=== PATIENT | female | born 1945 | race Two or more races ===

== ENCOUNTER 2022-12-22 10:17 | Inpatient (IN) | payer MEDICARE, MEDICAID ==
[~2022-12-22] VITALS: Ht 170.2 cm; Wt 91.8 kg
[~2022-12-22 10:17] MED LIST: AMLO-496 PO; ATO40T PO; HYDR-4296 PO; LISI20TA28 PO; METO-158 PO; NITR0.4S29 SL; OMEP20CA74 PO; RIVA20TA PO
[2022-12-22 11:18] LABS: White Blood Cell 7.1 10^3/uL (4.4-10.8)
[2022-12-22 11:20] LABS: Hematocrit 21.3 % (36.0-46.0); Mean Corpuscular Hemoglobin 22.3 pg (28.0-32.0); Mean Corpuscular Hgb Conc. 30.9 g/dL (32.0-36.0); Mean Corpuscular Volume 72.2 fL (80.0-100.0); Red Blood Cells 2.95 10^6/uL (4.0-5.20); Red Cell Distribution Width 18.5 % (11.8-14.3)
[2022-12-22 11:35] LABS: Hemoglobin 6.6 g/dL (12.2-16.2)
[2022-12-22 11:42] LABS: Band Neutrophils % (manual) 0; Basophils % (manual) 0 (0.0-2.0); Blast Cells 0; Eosinophils % (manual) 0 (0-7); Metamyelocytes % 0; Myelocytes % 0; Promyelocytes % 0; Reactive Lymphocytes 0
[2022-12-22 11:57] LABS: Anion Gap 10 (5-15); BUN/Creatinine Ratio 29.6; Blood Urea Nitrogen 56 mg/dL (7-18); Carbon Dioxide 22 mmol/L (21-32); Chloride 111 mmol/L (98-107); GFR African American 33 mL/min; GFR Non-African American 28 mL/min; Glucose 122 mg/dL (74-106); Sodium 143 mmol/L (136-145)
[2022-12-22 11:58] LABS: Alanine Aminotransferase 30 U/L (13-56); Albumin 3.5 g/dL (3.4-5.0); Alkaline Phosphatase 88 U/L (45-117); Aspartate Aminotransferase 17 U/L (15-37); Bilirubin, Total < 0.1 mg/dL (0.2-1.0); Calcium 8.6 mg/dL (8.5-10.1); Total Protein 6.7 g/dL (6.4-8.2)
[2022-12-22] MEDS ORDERED: cloNIDine HCL 0.1 MG TAB PO ONE (12:15)
[2022-12-22 15:44] LABS: Urine Bacteria NONE SEEN /hpf (None Seen); Urine Blood Negative /uL (Negative); Urine Specific Gravity 1.013 (1.001-1.035); Urine WBC 2 /hpf (0 - 5)
[2022-12-22] MEDS ORDERED: NITROGLYCERIN 0.4 MG SL TAB SL PRN (16:00)
[2022-12-22] MEDS ORDERED: PANTOPRAZOLE 40 MG/10 ML VIAL INJ IV ONE (16:00)
[2022-12-22] MEDS ORDERED: MORPHINE SULFATE INJ 2 MG/ml SYRG IV PRN (16:00)
[2022-12-22 16:03] LABS: Lymphocytes % (manual) 11 (10.0-50.0); Monocytes % (manual) 7 (0-12)
[2022-12-22] MEDS ORDERED: hydrALAZINE HCL 20 MG/ML VL IV PRN (16:15)
[2022-12-22] MEDS ORDERED: DEXTROSE (50%) 50ML SYRG IV PRN (16:15)
[2022-12-22 16:27] VITALS: BP 147/60
[2022-12-22 16:42] VITALS: BP 156/70
[2022-12-22 16:48] LABS: Hematocrit 22.3 % (36.0-46.0)
[2022-12-22 16:55] LABS: Hemoglobin 6.8 g/dL (12.2-16.2)
[2022-12-22 17:22] LABS: Ferritin 3.7 ng/mL (10-322)
[2022-12-22 17:40] LABS: % Iron Saturation 2.2 % (15-50)
[2022-12-22 17:48] LABS: Cholesterol 85 mg/dL (< 200); HDL Cholesterol 23 mg/dL (40-59); LDL Cholesterol 62 mg/dL (< 100); Triglycerides 116 mg/dL (< 150)
[2022-12-22] MEDS: InsuLIN REG 1unit/0.01ml Soln (100units/ml) SC SCH (18:00)
[2022-12-22] MEDS: LACTATED RINGER'S 1,000 ML IV SCH (18:23)
[2022-12-22] MEDS: ACCU-CHEK COMFORT CURVE STRIP VI SCH (18:24)
[2022-12-22 18:33] LABS: INR 1.32 (0.9-1.15)
[2022-12-22 18:35] VITALS: BP 151/74
[2022-12-22 22:01] LABS: Basophils # (auto) 0.1 10 ^3/uL (0-0.2); Eosinophils # (auto) 0.1 10 ^3/uL (0-0.8); Hemoglobin 7.2 g/dL (12.2-16.2); Lymphocytes # (auto) 0.8 10 ^3/uL (0.4-5.4); Mean Corpuscular Volume 73.8 fL (80.0-100.0); Monocytes # (auto) 0.7 10 ^3/uL (0-1.3); Nucleated Red Blood Cells % 0.7 %
[2022-12-22 22:02] LABS: Basophils % (auto) 1.2 % (0.0-2.0); Eosinophils % (auto) 0.9 % (0.0-7.0); Lymphocytes % (auto) 11.5 % (10.0-50.0); Mean Corpuscular Hemoglobin 23.1 pg (28.0-32.0); Mean Corpuscular Hgb Conc. 31.3 g/dL (32.0-36.0); Monocytes % (auto) 9.3 % (0.0-12.0); Neutrophils # (auto) 5.4 10 ^3/uL (1.6-8.6); Neutrophils % (auto) 77.1 % (37.0-80.0); Red Blood Cells 3.12 10^6/uL (4.0-5.20)
[2022-12-22] MEDS: ATORVASTATIN 20 MG TAB PO SCH (22:40)
[2022-12-22] MEDS: hydrALAZINE HCL 25 MG TAB PO SCH (22:40)
[2022-12-22] MEDS: METOPROLOL TARTRATE 50 MG TAB PO SCH (22:41)
[2022-12-23 00:56] LABS: Hematocrit 23.6 % (36.0-46.0); Hemoglobin 7.3 g/dL (12.2-16.2)
[2022-12-23] MEDS: LACTATED RINGER'S 1,000 ML IV SCH ×2 (04:29→12:40)
[2022-12-23] MEDS: PANTOPRAZOLE 40 MG/10 ML VIAL INJ IV SCH ×2 (04:29→20:09)
[2022-12-23] MEDS: ACCU-CHEK COMFORT CURVE STRIP VI SCH ×4 (05:34→20:10)
[2022-12-23] MEDS: InsuLIN REG 1unit/0.01ml Soln (100units/ml) SC SCH ×5 (05:34→22:59)
[2022-12-23 06:44] LABS: Albumin 3.1 g/dL (3.4-5.0); Calcium 8.9 mg/dL (8.5-10.1); Potassium 4.2 mmol/L (3.5-5.1)
[2022-12-23 06:50] LABS: BUN/Creatinine Ratio 25.6; Bilirubin, Total 0.8 mg/dL (0.2-1.0); Total Protein 6.5 g/dL (6.4-8.2)
[2022-12-23 06:53] LABS: Eosinophils # (auto) 0.1 10 ^3/uL (0-0.8); Lymphocytes # (auto) 0.8 10 ^3/uL (0.4-5.4); Monocytes # (auto) 0.7 10 ^3/uL (0-1.3); White Blood Cell 6.7 10^3/uL (4.4-10.8)
[2022-12-23 06:55] LABS: Basophils # (auto) 0.1 10 ^3/uL (0-0.2); Basophils % (auto) 0.8 % (0.0-2.0); Eosinophils % (auto) 0.9 % (0.0-7.0); Hemoglobin 7.3 g/dL (12.2-16.2); Lymphocytes % (auto) 11.4 % (10.0-50.0); Mean Corpuscular Hemoglobin 23.5 pg (28.0-32.0); Mean Corpuscular Hgb Conc. 31.6 g/dL (32.0-36.0); Mean Corpuscular Volume 74.4 fL (80.0-100.0); Neutrophils # (auto) 5.1 10 ^3/uL (1.6-8.6); Neutrophils % (auto) 76.9 % (37.0-80.0); Nucleated Red Blood Cells % 1.2 %; Red Blood Cells 3.09 10^6/uL (4.0-5.20); Red Cell Distribution Width 18.8 % (11.8-14.3)
[2022-12-23 09:02] LABS: Folate (Folic Acid) 19.48 ng/mL (5.38-24)
[2022-12-23] MEDS ORDERED: LISINOPRIL 20 MG TAB PO SCH (10:00)
[2022-12-23] MEDS: amLODIPine BESYLATE 5 MG TAB PO SCH (11:19)
[2022-12-23] MEDS: METOPROLOL TARTRATE 50 MG TAB PO SCH ×2 (11:20→22:00)
[2022-12-23] MEDS: hydrALAZINE HCL 25 MG TAB PO SCH ×2 (11:47→22:00)
[2022-12-23 12:09] LABS: Hematocrit 24.3 % (36.0-46.0); Hemoglobin 7.4 g/dL (12.2-16.2)
[2022-12-23 17:38] LABS: Protein, Urine 56.6 mg/dL (0.0-11.9)
[2022-12-23 18:11] LABS: Hemoglobin 7.5 g/dL (12.2-16.2)
[2022-12-23 18:13] LABS: Hematocrit 24.8 % (36.0-46.0)
[2022-12-23 22:00] VITALS: BP 123/45
[2022-12-23] MEDS: ATORVASTATIN 20 MG TAB PO SCH (23:00)
[2022-12-24] MEDS: ACETAMINOPHEN 325 MG TAB PO PRN ×2 (02:13→08:19)
[2022-12-24] MEDS: PANTOPRAZOLE 40 MG/10 ML VIAL INJ IV SCH ×2 (04:27→15:18)
[2022-12-24 05:00] VITALS: BP 117/54
[2022-12-24 05:34] LABS: Basophils # (auto) 0.1 10 ^3/uL (0-0.2); Eosinophils # (auto) 0.1 10 ^3/uL (0-0.8); Eosinophils % (auto) 1.5 % (0.0-7.0); Hemoglobin 7.2 g/dL (12.2-16.2); Lymphocytes # (auto) 0.9 10 ^3/uL (0.4-5.4); Mean Corpuscular Hemoglobin 22.5 pg (28.0-32.0); Neutrophils # (auto) 5.9 10 ^3/uL (1.6-8.6); Red Cell Distribution Width 18.9 % (11.8-14.3)
[2022-12-24 05:36] LABS: Basophils % (auto) 1.2 % (0.0-2.0); Hematocrit 23.8 % (36.0-46.0); Lymphocytes % (auto) 11.9 % (10.0-50.0); Mean Corpuscular Hgb Conc. 30.3 g/dL (32.0-36.0); Mean Corpuscular Volume 74.1 fL (80.0-100.0); Monocytes # (auto) 0.9 10 ^3/uL (0-1.3); Monocytes % (auto) 11.2 % (0.0-12.0); Neutrophils % (auto) 74.2 % (37.0-80.0); Nucleated Red Blood Cells % 1.1 %; Red Blood Cells 3.21 10^6/uL (4.0-5.20)
[2022-12-24] MEDS: InsuLIN REG 1unit/0.01ml Soln (100units/ml) SC SCH ×4 (05:43→23:58)
[2022-12-24 05:50] LABS: Magnesium 2.9 mg/dL (1.6-2.6); Potassium 4.3 mmol/L (3.5-5.1)
[2022-12-24 05:52] LABS: BUN/Creatinine Ratio 26.8
[2022-12-24] MEDS: hydrALAZINE HCL 25 MG TAB PO SCH ×3 (06:00→22:11)
[2022-12-24] MEDS: ACCU-CHEK COMFORT CURVE STRIP VI SCH ×5 (06:26→23:58)
[2022-12-24] MEDS: METOPROLOL TARTRATE 50 MG TAB PO SCH ×2 (08:20→22:12)
[2022-12-24] MEDS: amLODIPine BESYLATE 5 MG TAB PO SCH (08:21)
[2022-12-24 08:48] VITALS: BP 133/68
[2022-12-24 13:00] VITALS: BP 133/58
[2022-12-24] MEDS: SODIUM FERR GLUC 62.5MG/5ML 125 MG in SODIUM CHL 0.9% 100 ML IV SCH (13:19)
[2022-12-24] MEDS ORDERED: SODIUM CHLORIDE 0.9% 1,000 ML IV ONE (14:00)
[2022-12-24 17:30] VITALS: BP 133/63
[2022-12-24 22:00] VITALS: BP 114/54
[2022-12-24] MEDS: ATORVASTATIN 20 MG TAB PO SCH (22:13)
[2022-12-25] VITALS (10 sets, daily range): BP systolic 99–132; BP diastolic 44–65
[2022-12-25] MEDS: PANTOPRAZOLE 40 MG/10 ML VIAL INJ IV SCH ×2 (04:00→17:25)
[2022-12-25] MEDS: hydrALAZINE HCL 25 MG TAB PO SCH ×3 (05:28→22:00)
[2022-12-25] MEDS: InsuLIN REG 1unit/0.01ml Soln (100units/ml) SC SCH ×4 (06:00→23:20)
[2022-12-25] MEDS: ACCU-CHEK COMFORT CURVE STRIP VI SCH ×4 (06:00→23:16)
[2022-12-25] MEDS: amLODIPine BESYLATE 5 MG TAB PO SCH (08:21)
[2022-12-25] MEDS: METOPROLOL TARTRATE 50 MG TAB PO SCH ×2 (08:21→22:00)
[2022-12-25] MEDS: ACETAMINOPHEN 325 MG TAB PO PRN (08:23)
[2022-12-25 09:01] LABS: Basophils # (auto) 0.1 10 ^3/uL (0-0.2); Eosinophils # (auto) 0.1 10 ^3/uL (0-0.8); Eosinophils % (auto) 1.7 % (0.0-7.0); Hematocrit 23.1 % (36.0-46.0); Lymphocytes # (auto) 0.7 10 ^3/uL (0.4-5.4); Lymphocytes % (auto) 8.8 % (10.0-50.0); Mean Corpuscular Hemoglobin 22.4 pg (28.0-32.0); Mean Corpuscular Volume 74.8 fL (80.0-100.0); Monocytes # (auto) 0.7 10 ^3/uL (0-1.3); Monocytes % (auto) 8.4 % (0.0-12.0); Neutrophils # (auto) 6.4 10 ^3/uL (1.6-8.6); Neutrophils % (auto) 80.1 % (37.0-80.0); Nucleated Red Blood Cells % 1.7 %; Red Blood Cells 3.08 10^6/uL (4.0-5.20); Red Cell Distribution Width 19.8 % (11.8-14.3); White Blood Cell 7.9 10^3/uL (4.4-10.8)
[2022-12-25 09:14] LABS: Hemoglobin 6.9 g/dL (12.2-16.2)
[2022-12-25 09:29] LABS: BUN/Creatinine Ratio 23.6; Calcium 8.5 mg/dL (8.5-10.1); Potassium 4.5 mmol/L (3.5-5.1)
[2022-12-25] MEDS: SODIUM FERR GLUC 62.5MG/5ML 125 MG in SODIUM CHL 0.9% 100 ML IV SCH (12:14)
[2022-12-25] MEDS ORDERED: LIDOCAINE VISCOUS 2% 15ML UD ONE (12:48)
[2022-12-25] MEDS ORDERED: fentaNYL CITRATE 100 MCG/2 ML VL ONE (14:47)
[2022-12-25] MEDS ORDERED: KETAMINE HCL 10 ML ONE (14:47)
[2022-12-25] MEDS ORDERED: MIDAZOLAM HCL 2MG/2ML 2ml VIAL (1mg/ml) ONE (14:47)
[2022-12-25] MEDS ORDERED: GLYCOPYRROLATE 0.2 MG/ML 1ML VIAL ONE (14:48)
[2022-12-25] MEDS ORDERED: ONDANSETRON HCL 4 MG/2 ML VIAL ONE (14:48)
[2022-12-25] MEDS ORDERED: PROPOFOL 10 MG/ML 20 ML IV ONE (14:48)
[2022-12-25] MEDS ORDERED: ACCU-CHEK COMFORT CURVE STRIP VI ONE ×2 (15:15→15:45)
[2022-12-25] MEDS ORDERED: ONDANSETRON HCL 4 MG/2 ML VIAL IV PRN ×2 (15:15→15:45)
[2022-12-25] MEDS ORDERED: HYDROmorphone HCL 2 MG/ML VL/or syr IV PRN (15:15)
[2022-12-25] MEDS: SUCRALFATE 1 GM/10 ML ORAL SUSP PO SCH ×2 (17:25→22:25)
[2022-12-25] MEDS: ATORVASTATIN 20 MG TAB PO SCH (22:25)
[2022-12-26] VITALS (7 sets, daily range): BP systolic 104–148; BP diastolic 51–60
[2022-12-26] MEDS: PANTOPRAZOLE 40 MG/10 ML VIAL INJ IV SCH ×2 (03:56→16:29)
[2022-12-26] MEDS: InsuLIN REG 1unit/0.01ml Soln (100units/ml) SC SCH ×4 (06:00→23:06)
[2022-12-26] MEDS: ACCU-CHEK COMFORT CURVE STRIP VI SCH ×4 (06:36→23:06)
[2022-12-26] MEDS: SUCRALFATE 1 GM/10 ML ORAL SUSP PO SCH ×4 (06:37→22:51)
[2022-12-26] MEDS: hydrALAZINE HCL 25 MG TAB PO SCH ×3 (06:57→22:52)
[2022-12-26] MEDS: ACETAMINOPHEN 325 MG TAB PO PRN ×2 (08:51→20:21)
[2022-12-26] MEDS: amLODIPine BESYLATE 5 MG TAB PO SCH (08:52)
[2022-12-26] MEDS: METOPROLOL TARTRATE 50 MG TAB PO SCH ×2 (08:52→22:52)
[2022-12-26] MEDS ORDERED: FUROSEMIDE 40 MG/4 ML VIAL IV ONE (11:45)
[2022-12-26 12:15] LABS: Basophils # (auto) 0.1 10 ^3/uL (0-0.2); Hemoglobin 8.1 g/dL (12.2-16.2); Lymphocytes # (auto) 0.8 10 ^3/uL (0.4-5.4); Mean Corpuscular Hgb Conc. 29.9 g/dL (32.0-36.0); Neutrophils % (auto) 79.8 % (37.0-80.0); Red Blood Cells 3.48 10^6/uL (4.0-5.20); White Blood Cell 9.6 10^3/uL (4.4-10.8)
[2022-12-26 12:17] LABS: Basophils % (auto) 0.8 % (0.0-2.0); Eosinophils # (auto) 0.1 10 ^3/uL (0-0.8); Eosinophils % (auto) 1.4 % (0.0-7.0); Lymphocytes % (auto) 7.9 % (10.0-50.0); Mean Corpuscular Hemoglobin 23.2 pg (28.0-32.0); Mean Corpuscular Volume 77.5 fL (80.0-100.0); Monocytes % (auto) 10.1 % (0.0-12.0); Neutrophils # (auto) 7.7 10 ^3/uL (1.6-8.6); Nucleated Red Blood Cells % 1.7 %
[2022-12-26 12:33] LABS: Red Cell Distribution Width 20.3 % (11.8-14.3)
[2022-12-26] MEDS: SODIUM FERR GLUC 62.5MG/5ML 125 MG in SODIUM CHL 0.9% 100 ML IV SCH (13:57)
[2022-12-26] MEDS: ATORVASTATIN 20 MG TAB PO SCH (22:53)
[2022-12-27] VITALS (7 sets, daily range): BP systolic 103–141; BP diastolic 25–99
[2022-12-27] MEDS: PANTOPRAZOLE 40 MG/10 ML VIAL INJ IV SCH ×2 (04:18→16:21)
[2022-12-27] MEDS: ACCU-CHEK COMFORT CURVE STRIP VI SCH ×4 (05:47→23:58)
[2022-12-27] MEDS: InsuLIN REG 1unit/0.01ml Soln (100units/ml) SC SCH ×4 (05:47→23:58)
[2022-12-27] MEDS: SUCRALFATE 1 GM/10 ML ORAL SUSP PO SCH ×4 (06:18→21:37)
[2022-12-27] MEDS: hydrALAZINE HCL 25 MG TAB PO SCH ×3 (06:19→21:37)
[2022-12-27 06:31] LABS: Calcium 8.9 mg/dL (8.5-10.1); Potassium 4.9 mmol/L (3.5-5.1)
[2022-12-27 06:33] LABS: BUN/Creatinine Ratio 20.2
[2022-12-27 07:05] LABS: Basophils # (auto) 0.1 10 ^3/uL (0-0.2); Basophils % (auto) 0.8 % (0.0-2.0); Eosinophils # (auto) 0.2 10 ^3/uL (0-0.8); Eosinophils % (auto) 2.4 % (0.0-7.0); Hematocrit 26.4 % (36.0-46.0); Hemoglobin 8.2 g/dL (12.2-16.2); Lymphocytes # (auto) 0.7 10 ^3/uL (0.4-5.4); Lymphocytes % (auto) 7.9 % (10.0-50.0); Mean Corpuscular Hemoglobin 23.5 pg (28.0-32.0); Mean Corpuscular Hgb Conc. 31.2 g/dL (32.0-36.0); Mean Corpuscular Volume 75.4 fL (80.0-100.0); Monocytes # (auto) 0.8 10 ^3/uL (0-1.3); Monocytes % (auto) 9.5 % (0.0-12.0); Neutrophils # (auto) 6.5 10 ^3/uL (1.6-8.6); Neutrophils % (auto) 79.4 % (37.0-80.0); Nucleated Red Blood Cells % 0.8 %; White Blood Cell 8.2 10^3/uL (4.4-10.8)
[2022-12-27 07:06] LABS: Red Cell Distribution Width 20.6 % (11.8-14.3)
[2022-12-27] MEDS: METOPROLOL TARTRATE 50 MG TAB PO SCH ×2 (09:41→21:37)
[2022-12-27] MEDS: amLODIPine BESYLATE 5 MG TAB PO SCH (09:42)
[2022-12-27] MEDS: ACETAMINOPHEN 325 MG TAB PO PRN ×2 (10:43→23:51)
[2022-12-27] MEDS: FUROSEMIDE 40 MG/4 ML VIAL IV SCH (10:43)
[2022-12-27] MEDS: SODIUM FERR GLUC 62.5MG/5ML 125 MG in SODIUM CHL 0.9% 100 ML IV SCH (13:03)
[2022-12-27] MEDS: ATORVASTATIN 20 MG TAB PO SCH (21:37)
[2022-12-28 05:00] VITALS: BP 130/60
[2022-12-28] MEDS: InsuLIN REG 1unit/0.01ml Soln (100units/ml) SC SCH ×4 (06:00→23:36)
[2022-12-28] MEDS: SUCRALFATE 1 GM/10 ML ORAL SUSP PO SCH ×4 (06:17→22:02)
[2022-12-28] MEDS: PANTOPRAZOLE 40 MG/10 ML VIAL INJ IV SCH ×2 (06:17→16:00)
[2022-12-28] MEDS: hydrALAZINE HCL 25 MG TAB PO SCH ×3 (06:18→22:02)
[2022-12-28] MEDS: ACCU-CHEK COMFORT CURVE STRIP VI SCH ×4 (06:18→23:36)
[2022-12-28 08:00] VITALS: BP 127/52
[2022-12-28 09:00] VITALS: BP 102/34
[2022-12-28] MEDS: FUROSEMIDE 40 MG/4 ML VIAL IV SCH (10:00)
[2022-12-28] MEDS: METOPROLOL TARTRATE 50 MG TAB PO SCH ×2 (10:00→22:02)
[2022-12-28] MEDS: amLODIPine BESYLATE 5 MG TAB PO SCH (10:00)
[2022-12-28] MEDS ORDERED: ALPRAZolam 0.25 MG TAB PO PRN (11:15)
[2022-12-28] MEDS ORDERED: guaiFENesin-DM 100/10mg/5ml SYR PO PRN (11:15)
[2022-12-28] MEDS: SODIUM FERR GLUC 62.5MG/5ML 125 MG in SODIUM CHL 0.9% 100 ML IV SCH (12:00)
[2022-12-28 12:10] LABS: Basophils # (auto) 0.1 10 ^3/uL (0-0.2); Eosinophils # (auto) 0.1 10 ^3/uL (0-0.8); Monocytes # (auto) 0.7 10 ^3/uL (0-1.3)
[2022-12-28 12:12] LABS: Basophils % (auto) 0.7 % (0.0-2.0); Eosinophils % (auto) 1.5 % (0.0-7.0); Hematocrit 26.9 % (36.0-46.0); Hemoglobin 8.3 g/dL (12.2-16.2); Lymphocytes # (auto) 0.4 10 ^3/uL (0.4-5.4); Lymphocytes % (auto) 5.3 % (10.0-50.0); Mean Corpuscular Hemoglobin 23.9 pg (28.0-32.0); Mean Corpuscular Hgb Conc. 30.8 g/dL (32.0-36.0); Mean Corpuscular Volume 77.6 fL (80.0-100.0); Neutrophils # (auto) 7.2 10 ^3/uL (1.6-8.6); Neutrophils % (auto) 84.5 % (37.0-80.0); Nucleated Red Blood Cells % 0.4 %; Red Blood Cells 3.46 10^6/uL (4.0-5.20); White Blood Cell 8.5 10^3/uL (4.4-10.8)
[2022-12-28 12:29] LABS: BUN/Creatinine Ratio 22.2; Calcium 8.5 mg/dL (8.5-10.1)
[2022-12-28 12:36] LABS: Red Cell Distribution Width 20.7 % (11.8-14.3)
[2022-12-28 13:00] VITALS: BP 101/46
[2022-12-28 16:00] VITALS: BP 110/51
[2022-12-28] MEDS: ACETAMINOPHEN 325 MG TAB PO PRN (17:50)
[2022-12-28] MEDS: ATORVASTATIN 20 MG TAB PO SCH (22:02)
[2022-12-28 23:04] VITALS: BP 131/67
[2022-12-29] MEDS: PANTOPRAZOLE 40 MG/10 ML VIAL INJ IV SCH ×2 (03:36→16:33)
[2022-12-29 05:11] VITALS: BP 154/64
[2022-12-29 05:21] LABS: Basophils # (auto) 0 10 ^3/uL (0-0.2); Basophils % (auto) 0.6 % (0.0-2.0); Eosinophils # (auto) 0.1 10 ^3/uL (0-0.8); Lymphocytes # (auto) 0.4 10 ^3/uL (0.4-5.4); Nucleated Red Blood Cells % 0.1 %
[2022-12-29 05:24] LABS: Eosinophils % (auto) 0.7 % (0.0-7.0); Hematocrit 26.8 % (36.0-46.0); Hemoglobin 8.4 g/dL (12.2-16.2); Lymphocytes % (auto) 5.2 % (10.0-50.0); Mean Corpuscular Hemoglobin 24.2 pg (28.0-32.0); Mean Corpuscular Hgb Conc. 31.2 g/dL (32.0-36.0); Mean Corpuscular Volume 77.4 fL (80.0-100.0); Monocytes # (auto) 0.7 10 ^3/uL (0-1.3); Monocytes % (auto) 8.7 % (0.0-12.0); Neutrophils # (auto) 6.8 10 ^3/uL (1.6-8.6); Neutrophils % (auto) 84.8 % (37.0-80.0); Red Blood Cells 3.47 10^6/uL (4.0-5.20)
[2022-12-29 05:28] LABS: Red Cell Distribution Width 21.5 % (11.8-14.3)
[2022-12-29 05:53] LABS: BUN/Creatinine Ratio 23.3; Calcium 8.8 mg/dL (8.5-10.1)
[2022-12-29] MEDS: hydrALAZINE HCL 25 MG TAB PO SCH ×3 (06:28→21:48)
[2022-12-29] MEDS: ACCU-CHEK COMFORT CURVE STRIP VI SCH ×4 (06:29→23:28)
[2022-12-29] MEDS: SUCRALFATE 1 GM/10 ML ORAL SUSP PO SCH ×4 (06:29→21:45)
[2022-12-29] MEDS: InsuLIN REG 1unit/0.01ml Soln (100units/ml) SC SCH ×4 (06:32→23:28)
[2022-12-29 09:00] VITALS: BP 137/59
[2022-12-29] MEDS: FUROSEMIDE 40 MG/4 ML VIAL IV SCH (10:00)
[2022-12-29] MEDS: METOPROLOL TARTRATE 50 MG TAB PO SCH ×2 (10:35→21:48)
[2022-12-29] MEDS: amLODIPine BESYLATE 5 MG TAB PO SCH (10:36)
[2022-12-29] MEDS: SODIUM FERR GLUC 62.5MG/5ML 125 MG in SODIUM CHL 0.9% 100 ML IV SCH ×2 (11:52→12:00)
[2022-12-29 14:11] VITALS: BP 108/59
[2022-12-29 17:00] VITALS: BP 121/70
[2022-12-29] MEDS: ACETAMINOPHEN 325 MG TAB PO PRN (21:48)
[2022-12-29] MEDS: ATORVASTATIN 20 MG TAB PO SCH (21:49)
[2022-12-29 22:00] VITALS: BP 124/69
[2022-12-30] VITALS (7 sets, daily range): BP systolic 127–144; BP diastolic 48–72
[2022-12-30] MEDS: PANTOPRAZOLE 40 MG/10 ML VIAL INJ IV SCH ×2 (03:44→17:30)
[2022-12-30] MEDS: hydrALAZINE HCL 25 MG TAB PO SCH ×3 (05:44→22:33)
[2022-12-30] MEDS: ACCU-CHEK COMFORT CURVE STRIP VI SCH ×4 (05:45→23:44)
[2022-12-30] MEDS: InsuLIN REG 1unit/0.01ml Soln (100units/ml) SC SCH ×4 (05:55→23:45)
[2022-12-30] MEDS: ACETAMINOPHEN 325 MG TAB PO PRN ×2 (05:55→22:33)
[2022-12-30] MEDS: SUCRALFATE 1 GM/10 ML ORAL SUSP PO SCH ×4 (06:28→22:34)
[2022-12-30] MEDS: amLODIPine BESYLATE 5 MG TAB PO SCH (10:14)
[2022-12-30] MEDS: FUROSEMIDE 40 MG/4 ML VIAL IV SCH (10:16)
[2022-12-30] MEDS: METOPROLOL TARTRATE 50 MG TAB PO SCH ×2 (10:16→22:34)
[2022-12-30] MEDS: SODIUM FERR GLUC 62.5MG/5ML 125 MG in SODIUM CHL 0.9% 100 ML IV SCH (12:00)
[2022-12-30 22:04] LABS: Calcium 9.1 mg/dL (8.5-10.1)
[2022-12-30] MEDS: ATORVASTATIN 20 MG TAB PO SCH (22:33)
[2022-12-31 05:00] VITALS: BP 118/63
[2022-12-31] MEDS: PANTOPRAZOLE 40 MG/10 ML VIAL INJ IV SCH ×2 (05:26→16:30)
[2022-12-31] MEDS: hydrALAZINE HCL 25 MG TAB PO SCH ×2 (05:26→14:12)
[2022-12-31] MEDS: InsuLIN REG 1unit/0.01ml Soln (100units/ml) SC SCH ×2 (05:33→12:05)
[2022-12-31] MEDS: ACCU-CHEK COMFORT CURVE STRIP VI SCH ×2 (05:33→12:01)
[2022-12-31] MEDS: SUCRALFATE 1 GM/10 ML ORAL SUSP PO SCH ×3 (06:28→17:00)
[2022-12-31] MEDS: ACETAMINOPHEN 325 MG TAB PO PRN ×2 (06:33→13:07)
[2022-12-31 08:10] VITALS: BP 146/61
[2022-12-31 08:52] VITALS: BP 146/61
[2022-12-31] MEDS: FUROSEMIDE 40 MG/4 ML VIAL IV SCH (09:36)
[2022-12-31] MEDS: amLODIPine BESYLATE 5 MG TAB PO SCH (09:36)
[2022-12-31] MEDS: METOPROLOL TARTRATE 50 MG TAB PO SCH (09:37)
[2022-12-31 13:00] VITALS: BP 130/67
[2022-12-31] MEDS: SODIUM FERR GLUC 62.5MG/5ML 125 MG in SODIUM CHL 0.9% 100 ML IV SCH (13:00)
[2022-12-31 14:47] VITALS: BP 130/67
== END 2022-12-31 17:52 | DRG 377 ==
LOC: EDBD 10:17 → ER 10:17 → TELE 15:55 → TELE-WESTW 12-23 21:35
PROVIDERS: ADMIT Registered Nurse; ATTEND Internal Medicine Geriatric Medicine
PROC: 30233N1 Transfusion of Nonautologous Red Blood Cells into Peripheral Vein, Percutaneous Approach (ICD-10-PCS; principal; 2022-12-22)
PROC: 0DB98ZX Excision of Duodenum, Via Natural or Artificial Opening Endoscopic, Diagnostic (ICD-10-PCS; 2022-12-25)
PROC: 0DB68ZX Excision of Stomach, Via Natural or Artificial Opening Endoscopic, Diagnostic (ICD-10-PCS; 2022-12-25)
DX: K25.4 Chronic or unspecified gastric ulcer with hemorrhage (principal); N17.0 Acute kidney failure with tubular necrosis; N18.4 Chronic kidney disease, stage 4 (severe); I13.0 Hypertensive heart and chronic kidney disease with heart failure and stage 1 through stage 4 chronic kidney disease, or unspecified chronic kidney disease; I50.30 Unspecified diastolic (congestive) heart failure; K44.9 Diaphragmatic hernia without obstruction or gangrene; K31.7 Polyp of stomach and duodenum; D64.89 Other specified anemias; E78.5 Hyperlipidemia, unspecified; E11.22 Type 2 diabetes mellitus with diabetic chronic kidney disease; I48.0 Paroxysmal atrial fibrillation; F17.210 Nicotine dependence, cigarettes, uncomplicated; E66.9 Obesity, unspecified; F41.9 Anxiety disorder, unspecified; I25.10 Atherosclerotic heart disease of native coronary artery without angina pectoris; Z20.822 Contact with and (suspected) exposure to COVID-19; Z79.01 Long term (current) use of anticoagulants; Z90.710 Acquired absence of both cervix and uterus; Z95.0 Presence of cardiac pacemaker; Z68.31 Body mass index [BMI] 31.0-31.9, adult
CPT/HCPCS: 36415; 36600; 71045; 71250; 74176; 78582; 80048; 80053; 80061; 81001; 82270; 82378; 82570; 82607; 82728; 82746; 82805; 82962; 83036; 83540; 83550; 83615; 83735; 83935; 84156; 84300; 84443; 85007; 85014; 85018; 85025; 85027; 85049; 85384; 85610; 86850; 86900; 86901; 86920; 87426; 93005; 93306; 93971; 97110; 97116; 97163; 97530; C9113; G0378; J1815; J2250; J2405; J2704

== ENCOUNTER 2023-11-07 11:26 | Inpatient (IN) | payer MEDICARE, MEDICAID ==
[~2023-11-07] VITALS: Ht 160 cm; Wt 90.0 kg
[~2023-11-07 11:26] MED LIST changes: -AMLO-496 PO; +AMLO1TAB23 PO; -LISI20TA28 PO; +LISI20TA56 PO
[2023-11-07 11:30] VITALS: PULSE 70; RESP 28; O2SAT 100
[2023-11-07] MEDS ORDERED: PIPERACILLIN-TAZOB 3.375GM 100 ML IV ONE (12:15)
[2023-11-07] MEDS ORDERED: ALBUTEROL SULF 2.5 MG/0.5ML(0.5%) NEB SOLN NEB ONE (12:15)
[2023-11-07] MEDS ORDERED: IPRATROPIUM BROM 0.5 MG/2.5ML INH SOL NEB ONE (12:15)
[2023-11-07] MEDS ORDERED: methylPREDNISolone SOD SUCC 125 MG/2 ML VL IV ONE (12:15)
[2023-11-07 12:49] LABS: COVID19 ANTIGEN SOFIA FIA NEGATIVE (NEGATIVE); Rapid Influenza A Negative (Negative); Rapid Influenza B Negative (Negative)
[2023-11-07 12:56] LABS: Basophils # (auto) 0.1 10 ^3/uL (0-0.2); Basophils % (auto) 0.9 % (0.0-2.0); Eosinophils # (auto) 0.1 10 ^3/uL (0-0.8); Eosinophils % (auto) 1.2 % (0.0-7.0); Hemoglobin 10.4 g/dL (12.2-16.2); Lymphocytes # (auto) 0.8 10 ^3/uL (0.4-5.4); Lymphocytes % (auto) 10.3 % (10.0-50.0); Mean Corpuscular Hemoglobin 28.4 pg (28.0-32.0); Mean Corpuscular Hgb Conc. 31.5 g/dL (32.0-36.0); Monocytes # (auto) 0.6 10 ^3/uL (0-1.3); Monocytes % (auto) 7.5 % (0.0-12.0); Neutrophils # (auto) 6.4 10 ^3/uL (1.6-8.6); Neutrophils % (auto) 80.1 % (37.0-80.0); Nucleated Red Blood Cells % 0.1 %; Red Blood Cells 3.66 10^6/uL (4.0-5.20); Red Cell Distribution Width 16.2 % (11.8-14.3)
[2023-11-07 13:06] LABS: INR 1.41 (0.9-1.15); Partial Thromboplastin Time 39.3 SEC (24.5-34.5); Prothrombin Time 14.5 sec (9.3-11.8)
[2023-11-07 13:34] LABS: Alanine Aminotransferase 39 U/L (7-40); Albumin 4.3 g/dL (3.2-4.8); Alkaline Phosphatase 136 U/L (46-116); Anion Gap 11 (5-15); BUN/Creatinine Ratio 16.3 (10.0-20.0); Blood Urea Nitrogen 20 mg/dL (9-23); Calcium 9.9 mg/dL (8.5-10.1); Carbon Dioxide 18 mmol/L (20-30); Chloride 110 mmol/L (98-107); Glucose 180 mg/dL (74-106); Sodium 139 mmol/L (136-145)
[2023-11-07 13:35] LABS: Bilirubin, Total 0.8 mg/dL (0.2-1.0); Total Protein 7.1 g/dL (5.7-8.2)
[2023-11-07 13:40] LABS: Aspartate Aminotransferase 26 U/L (13-40)
[2023-11-07] MEDS ORDERED: NITROGLYCERIN 0.4 MG SL TAB SL PRN (15:45)
[2023-11-07] MEDS ORDERED: MORPHINE SULFATE INJ 2 MG/ml SYRG IV PRN (15:45)
[2023-11-07] MEDS ORDERED: amLODIPine BESYLATE 5 MG TAB PO ONE (16:15)
[2023-11-07] MEDS ORDERED: LISINOPRIL 20 MG TAB PO ONE (16:15)
[2023-11-07] MEDS ORDERED: PANTOPRAZOLE 40 MG/10 ML VIAL INJ IV ONE (16:15)
[2023-11-07] MEDS ORDERED: ALBUTEROL SULF 2.5 MG/0.5ML(0.5%) NEB SOLN NEB PRN (16:15)
[2023-11-07] MEDS ORDERED: ACETYLCYSTEINE ORAL for CIN 20%(200MG/ML) 4ML PO ONE (16:15)
[2023-11-07] MEDS ORDERED: FUROSEMIDE 20 MG/2 ML VIAL IV ONE (16:15)
[2023-11-07] MEDS ORDERED: IOHEXOL 350 MG/ML 100ML IJ ONE (16:39)
[2023-11-07] MEDS ORDERED: DEXTROSE (50%) 50ML SYRG IV PRN (16:45)
[2023-11-07] MEDS ORDERED: DOXYCYCLINE 100 MG TAB/CAP PO ONE (16:45)
[2023-11-07 17:45] VITALS: PULSE 74; RESP 24; O2SAT 96; O2SAT 97
[2023-11-07 17:50] VITALS: BP 111/56; PULSE 70; RESP 24; TEMP 97.5; O2SAT 96
[2023-11-07 17:55] VITALS: PULSE 70; RESP 24; O2SAT 99
[2023-11-07] MEDS ORDERED: FUROSEMIDE 20 MG/2 ML VIAL IV SCH (18:00)
[2023-11-07] MEDS: ALBUTEROL SULF 2.5 MG/0.5ML(0.5%) NEB SOLN NEB SCH ×2 (18:13→21:42)
[2023-11-07] MEDS: IPRATROPIUM BROM 0.5 MG/2.5ML INH SOL NEB SCH ×2 (18:13→21:43)
[2023-11-07] MEDS: FUROSEMIDE 20 MG/2 ML VIAL IV SCH (18:56)
[2023-11-07] MEDS: ACCU-CHEK COMFORT CURVE STRIP VI SCH ×2 (18:57→22:39)
[2023-11-07] MEDS: InsuLIN REG 1unit/0.01ml Soln (100units/ml) SC SCH ×2 (19:02→23:15)
[2023-11-07] MEDS ORDERED: NITROGLYCERIN 50MG/250ML 250 ML IV SCH (19:30)
[2023-11-07 20:20] VITALS: PULSE 73; RESP 20; O2SAT 97
[2023-11-07 21:35] VITALS: PULSE 81; RESP 26; O2SAT 97
[2023-11-07] MEDS ORDERED: methylPREDNISolone SOD SUCC 40 MG/ML VL IV SCH (22:00)
[2023-11-07] MEDS ORDERED: DOXYCYCLINE 100 MG TAB/CAP PO SCH (22:00)
[2023-11-07] MEDS: ATORVASTATIN 20 MG TAB PO SCH (23:14)
[2023-11-07] MEDS: ACETAMINOPHEN 325 MG TAB PO PRN (23:14)
[2023-11-07] MEDS: METOPROLOL TARTRATE 25 MG TAB PO SCH (23:14)
[2023-11-07] MEDS: ENOXAPARIN SOD 80 MG/0.8ML SYRINGE SC SCH (23:15)
[2023-11-08] VITALS (14 sets, daily range): BP systolic 134–157; BP diastolic 59–82; PULSE 70–87; RESP 17–24; TEMP 97.6–98.6; O2SAT 93–100
[2023-11-08 00:44] LABS: Urine Bacteria NONE SEEN /hpf (None Seen); Urine Blood Negative /uL (Negative); Urine Clarity Clear (Clear); Urine Color Yellow (Yellow); Urine Protein, UAD 1+ (Negative); Urine Urobilinogen Normal (Negative); Urine WBC 20 /hpf (0 - 5)
[2023-11-08] MEDS: ACETYLCYSTEINE ORAL for CIN 20%(200MG/ML) 4ML PO SCH ×3 (00:49→22:04)
[2023-11-08 01:39] LABS: Creatinine, Urine 65.64 mg/dL (30.0-125.0)
[2023-11-08] MEDS: ALBUTEROL SULF 2.5 MG/0.5ML(0.5%) NEB SOLN NEB SCH ×6 (02:00→22:00)
[2023-11-08] MEDS: IPRATROPIUM BROM 0.5 MG/2.5ML INH SOL NEB SCH ×6 (02:00→22:00)
[2023-11-08] MEDS ORDERED: PANT40TA57 PO (04:14)
[2023-11-08] MEDS ORDERED: GLIP-110 PO (04:14)
[2023-11-08] MEDS ORDERED: METO-289 PO (04:14)
[2023-11-08] MEDS ORDERED: FAMO20TA10 PO (04:14)
[2023-11-08] MEDS ORDERED: FURO40TA4 PO (04:14)
[2023-11-08] MEDS ORDERED: ASPI81CH59 PO (04:14)
[2023-11-08] MEDS: FUROSEMIDE 20 MG/2 ML VIAL IV SCH (06:24)
[2023-11-08] MEDS: InsuLIN REG 1unit/0.01ml Soln (100units/ml) SC SCH (06:30)
[2023-11-08] MEDS: ACCU-CHEK COMFORT CURVE STRIP VI SCH (06:32)
[2023-11-08 06:49] LABS: Basophils # (auto) 0 10 ^3/uL (0-0.2); Basophils % (auto) 0.3 % (0.0-2.0); Eosinophils # (auto) 0 10 ^3/uL (0-0.8); Hematocrit 29.7 % (36.0-46.0); Hemoglobin 9.5 g/dL (12.2-16.2); Lymphocytes # (auto) 0.6 10 ^3/uL (0.4-5.4); Lymphocytes % (auto) 7.5 % (10.0-50.0); Mean Corpuscular Hemoglobin 28.9 pg (28.0-32.0); Mean Corpuscular Hgb Conc. 32.1 g/dL (32.0-36.0); Mean Corpuscular Volume 90.1 fL (80.0-100.0); Monocytes # (auto) 0.5 10 ^3/uL (0-1.3); Monocytes % (auto) 6.3 % (0.0-12.0); Neutrophils # (auto) 6.3 10 ^3/uL (1.6-8.6); Neutrophils % (auto) 85.9 % (37.0-80.0); Nucleated Red Blood Cells % 0.1 %; Red Cell Distribution Width 16.6 % (11.8-14.3); White Blood Cell 7.4 10^3/uL (4.4-10.8)
[2023-11-08 07:15] LABS: Alanine Aminotransferase 41 U/L (7-40); Alkaline Phosphatase 124 U/L (46-116); Anion Gap 13 (5-15); BUN/Creatinine Ratio 25.4 (10.0-20.0); Calcium 9.5 mg/dL (8.5-10.1); Carbon Dioxide 18 mmol/L (20-30); Chloride 109 mmol/L (98-107); Glucose 150 mg/dL (74-106); LDL Cholesterol 108 mg/dL (< 100); Potassium 4.4 mmol/L (3.5-5.1); Sodium 140 mmol/L (136-145); Triglycerides 113 mg/dL (< 150)
[2023-11-08 07:16] LABS: Albumin 4.1 g/dL (3.2-4.8); Aspartate Aminotransferase 22 U/L (13-40); Bilirubin, Total 0.6 mg/dL (0.2-1.0); Cholesterol 154 mg/dL (< 200); HDL Cholesterol 34 mg/dL (40-59); Total Protein 6.4 g/dL (5.7-8.2)
[2023-11-08 07:21] LABS: Blood Urea Nitrogen 36 mg/dL (9-23)
[2023-11-08 07:43] LABS: Magnesium 2.3 mg/dL (1.6-2.6)
[2023-11-08] MEDS ORDERED: DOXYCYCLINE 100MG/250ML 250 ML IV SCH ×2 (08:00→23:00)
[2023-11-08 08:11] LABS: Lactic Acid w/Reflex 2.2 mmol/L (0.4-2.0)
[2023-11-08 08:34] LABS: % Iron Saturation 4.7 % (15-50)
[2023-11-08] MEDS ORDERED: cefTRIAXone 1GM/50ML D5W 50 ML IV SCH ×2 (09:00)
[2023-11-08 09:13] LABS: Ferritin 18.1 ng/mL (10-291)
[2023-11-08] MEDS: ENOXAPARIN SOD 80 MG/0.8ML SYRINGE SC SCH (09:53)
[2023-11-08] MEDS: METOPROLOL TARTRATE 25 MG TAB PO SCH ×2 (09:54→22:04)
[2023-11-08] MEDS ORDERED: PANTOPRAZOLE 40 MG/10 ML VIAL INJ IV SCH (10:00)
[2023-11-08] MEDS ORDERED: LISINOPRIL 20 MG TAB PO SCH (10:00)
[2023-11-08] MEDS ORDERED: amLODIPine BESYLATE 5 MG TAB PO SCH (10:00)
[2023-11-08] MEDS: ACETAMINOPHEN 325 MG TAB PO PRN (17:05)
[2023-11-08] MEDS: ATORVASTATIN 20 MG TAB PO SCH (22:03)
[2023-11-08] MEDS: DOXYCYCLINE 100 MG TAB/CAP PO SCH (22:13)
[2023-11-09] VITALS (22 sets, daily range): BP systolic 139–152; BP diastolic 65–90; PULSE 60–84; RESP 16–26; TEMP 97.6–98.8; O2SAT 93–100
[2023-11-09] MEDS: ALBUTEROL SULF 2.5 MG/0.5ML(0.5%) NEB SOLN NEB SCH ×6 (02:59→22:12)
[2023-11-09] MEDS: IPRATROPIUM BROM 0.5 MG/2.5ML INH SOL NEB SCH ×6 (02:59→22:11)
[2023-11-09 07:47] LABS: Basophils # (auto) 0 10 ^3/uL (0-0.2); Basophils % (auto) 0.5 % (0.0-2.0); Eosinophils # (auto) 0.2 10 ^3/uL (0-0.8); Eosinophils % (auto) 1.8 % (0.0-7.0); Hematocrit 30.8 % (36.0-46.0); Hemoglobin 9.8 g/dL (12.2-16.2); Mean Corpuscular Hemoglobin 28.7 pg (28.0-32.0); Mean Corpuscular Volume 89.8 fL (80.0-100.0); Monocytes # (auto) 0.8 10 ^3/uL (0-1.3); Monocytes % (auto) 9.6 % (0.0-12.0); Neutrophils # (auto) 6.8 10 ^3/uL (1.6-8.6); Neutrophils % (auto) 77.1 % (37.0-80.0); Nucleated Red Blood Cells % 0.1 %; Red Blood Cells 3.43 10^6/uL (4.0-5.20); Red Cell Distribution Width 16.4 % (11.8-14.3); White Blood Cell 8.8 10^3/uL (4.4-10.8)
[2023-11-09 08:38] LABS: Alanine Aminotransferase 41 U/L (7-40); Alkaline Phosphatase 125 U/L (46-116); Anion Gap 10 (5-15); BUN/Creatinine Ratio 24.2 (10.0-20.0); Blood Urea Nitrogen 36 mg/dL (9-23); Calcium 9.5 mg/dL (8.7-10.4); Carbon Dioxide 21 mmol/L (20-30); Chloride 107 mmol/L (98-107); Glucose 110 mg/dL (74-106); Magnesium 2.4 mg/dL (1.6-2.6); Potassium 4.2 mmol/L (3.5-5.1); Sodium 138 mmol/L (136-145)
[2023-11-09 08:39] LABS: Albumin 4.2 g/dL (3.2-4.8); Aspartate Aminotransferase 23 U/L (13-40); Total Protein 6.8 g/dL (5.7-8.2)
[2023-11-09 08:56] LABS: Bilirubin, Total 0.5 mg/dL (0.2-1.0)
[2023-11-09] MEDS: cefTRIAXone 1GM/50ML D5W 50 ML IV SCH (09:19)
[2023-11-09] MEDS: DOXYCYCLINE 100 MG TAB/CAP PO SCH ×2 (09:20→21:54)
[2023-11-09] MEDS: PANTOPRAZOLE 40 MG TAB PO SCH (09:20)
[2023-11-09] MEDS: ACETYLCYSTEINE ORAL for CIN 20%(200MG/ML) 4ML PO SCH (09:21)
[2023-11-09] MEDS: amLODIPine BESYLATE 5 MG TAB PO SCH (09:21)
[2023-11-09] MEDS: METOPROLOL TARTRATE 25 MG TAB PO SCH ×2 (09:21→21:54)
[2023-11-09] MEDS ORDERED: ENOXAPARIN SOD 40 MG/0.4 ML SYRINGE SC SCH (10:00)
[2023-11-09] MEDS ORDERED: RIVAROXABAN 20 MG TAB PO SCH (18:00)
[2023-11-09] MEDS: ATORVASTATIN 20 MG TAB PO SCH (21:55)
[2023-11-09] MEDS: ACETAMINOPHEN 325 MG TAB PO PRN (22:05)
[2023-11-10] VITALS (13 sets, daily range): BP systolic 127–150; BP diastolic 45–89; PULSE 70–88; RESP 14–18; TEMP 97.3–98.3; O2SAT 91–100
[2023-11-10] MEDS: ALBUTEROL SULF 2.5 MG/0.5ML(0.5%) NEB SOLN NEB SCH ×4 (01:36→13:49)
[2023-11-10] MEDS: IPRATROPIUM BROM 0.5 MG/2.5ML INH SOL NEB SCH ×4 (01:36→13:49)
[2023-11-10 06:29] LABS: Alanine Aminotransferase 37 U/L (7-40); Albumin 3.9 g/dL (3.2-4.8); Alkaline Phosphatase 127 U/L (46-116); Anion Gap 10 (5-15); Aspartate Aminotransferase 17 U/L (13-40); Blood Urea Nitrogen 29 mg/dL (9-23); Calcium 9.2 mg/dL (8.7-10.4); Carbon Dioxide 20 mmol/L (20-30); Chloride 109 mmol/L (98-107); Glucose 116 mg/dL (74-106); Magnesium 2.3 mg/dL (1.6-2.6); Potassium 4.7 mmol/L (3.5-5.1); Sodium 139 mmol/L (136-145)
[2023-11-10 06:30] LABS: Bilirubin, Total 0.5 mg/dL (0.2-1.0); Total Protein 6.5 g/dL (5.7-8.2)
[2023-11-10 06:31] LABS: Basophils # (auto) 0.1 10 ^3/uL (0-0.2); Basophils % (auto) 0.8 % (0.0-2.0); Eosinophils # (auto) 0.3 10 ^3/uL (0-0.8); Eosinophils % (auto) 4.6 % (0.0-7.0); Hematocrit 30.3 % (36.0-46.0); Hemoglobin 9.7 g/dL (12.2-16.2); Lymphocytes # (auto) 0.9 10 ^3/uL (0.4-5.4); Lymphocytes % (auto) 11.8 % (10.0-50.0); Mean Corpuscular Hemoglobin 28.7 pg (28.0-32.0); Mean Corpuscular Hgb Conc. 31.9 g/dL (32.0-36.0); Monocytes # (auto) 0.8 10 ^3/uL (0-1.3); Monocytes % (auto) 10.3 % (0.0-12.0); Neutrophils # (auto) 5.4 10 ^3/uL (1.6-8.6); Neutrophils % (auto) 72.5 % (37.0-80.0); Nucleated Red Blood Cells % 0.1 %; Red Blood Cells 3.36 10^6/uL (4.0-5.20); Red Cell Distribution Width 16.3 % (11.8-14.3); White Blood Cell 7.4 10^3/uL (4.4-10.8)
[2023-11-10 09:24] LABS: Base Excess -5.1 mmol/L (-2.0-2.0)
[2023-11-10] MEDS: DOXYCYCLINE 100 MG TAB/CAP PO SCH (10:16)
[2023-11-10] MEDS: METOPROLOL TARTRATE 25 MG TAB PO SCH (10:16)
[2023-11-10] MEDS: FERROUS SULFATE 325mg EC TAB PO SCH ×2 (10:16→12:45)
[2023-11-10] MEDS: cefTRIAXone 1GM/50ML D5W 50 ML IV SCH (10:17)
[2023-11-10] MEDS: PANTOPRAZOLE 40 MG TAB PO SCH (10:19)
[2023-11-10 11:23] LABS: Folate (Folic Acid) 20.99 ng/mL (>5.38)
[2023-11-10] MEDS: amLODIPine BESYLATE 5 MG TAB PO SCH (12:45)
[2023-11-10] MEDS ORDERED: RIVAROXABAN 15 MG TAB PO SCH (18:00)
== END 2023-11-10 18:00 | disposition home or self-care (01) | DRG 177 ==
LOC: ER 11:26 → EDBD 11:26 → CENTRAL 15:45 → TELE 15:45 → TELE-CENTR 22:35 → CENTRAL 11-10 09:05
PROVIDERS: ADMIT Internal Medicine; ATTEND Internal Medicine
PROC: 5A09357 Assistance with Respiratory Ventilation, Less than 24 Consecutive Hours, Continuous Positive Airway Pressure (ICD-10-PCS; principal; 2023-11-07)
DX: J15.69 Pneumonia due to other Gram-negative bacteria (principal); I50.33 Acute on chronic diastolic (congestive) heart failure; J96.01 Acute respiratory failure with hypoxia; I48.20 Chronic atrial fibrillation, unspecified; J44.0 Chronic obstructive pulmonary disease with (acute) lower respiratory infection; N17.9 Acute kidney failure, unspecified; I13.0 Hypertensive heart and chronic kidney disease with heart failure and stage 1 through stage 4 chronic kidney disease, or unspecified chronic kidney disease; Z68.35 Body mass index [BMI] 35.0-35.9, adult; J44.9 Chronic obstructive pulmonary disease, unspecified; Z20.822 Contact with and (suspected) exposure to COVID-19; E78.5 Hyperlipidemia, unspecified; D64.9 Anemia, unspecified; E11.22 Type 2 diabetes mellitus with diabetic chronic kidney disease; I27.20 Pulmonary hypertension, unspecified; N18.9 Chronic kidney disease, unspecified; Z79.01 Long term (current) use of anticoagulants; Z83.3 Family history of diabetes mellitus; Z86.73 Personal history of transient ischemic attack (TIA), and cerebral infarction without residual deficits; Z90.710 Acquired absence of both cervix and uterus; Z95.0 Presence of cardiac pacemaker; Z90.49 Acquired absence of other specified parts of digestive tract
CPT/HCPCS: 36415; 36600; 71045; 71275; 76775; 80053; 80061; 81001; 82570; 82607; 82728; 82746; 82805; 82962; 83036; 83540; 83550; 83605; 83735; 83880; 84300; 84443; 84484; 85025; 85045; 85379; 85610; 85730; 87040; 87086; 87426; 87804; 93005; 93306; 94640; 94660; C9113; G0378; J1815; J2543; J3490